=== PATIENT | male | born 1960 | race Caucasian/White ===

== ENCOUNTER → 2016-12-27 | Outpatient (CLI) | payer OTHER ==
[2016-12-27 11:29] LABS: Blood Urea Nitrogen 11 mg/dL (9-20); Non-African American GFR(MDRD) >60 (>60 ml/min/1.73 sqM)
--- NOTE | 2016-12-27 14:15 | MR ---
MR lumbar spine wo con Lumbago Multiplanar, multiecho imaging of the lumbar spine was obtained without contrast on a 3 Donna magnet. REFERENCE: Previous study dated 04/19/2014. FINDINGS: There is a stable 18 mm cystic lesion in the upper pole of the right kidney. Paraspinal so ft tissues are otherwise normal. Vertebral body height and alignment are maintained. The conus of the spinal cord ends above the level of the first cut. At T12-L1, there is mild disc space loss and hypertrophic spondylosis. The intervertebral foramina ap pear well maintained. The facets are unremarkable. At L1-2, there is disc space loss. The intervertebral foramina appear reasonably well-maintained. The re is a mild, diffuse disc displacement. There is mild hypertrophic change in the facets. At L2-3, there is disc space loss. The intervertebral foramina appear well maintained. There is a anne marie mohamud disc displacement. There are mild hypertrophic changes within the facets. At L3-4, there is disc space loss. Intervertebral foramina appear well maintained. There is a diffuse disc displacement, not much change from previous. There are hypertrophic changes in the facets. At L4-5, there is disc space loss. The intervertebral foramina are well maintained. There is a diffus e disc displacement. There is a small annular rent without protrusion. This is unchanged from previou s. There are hypertrophic changes in the facets. There is mild trefoiling of the thecal sac. At L5-S1, there are hypertrophic changes in the facets. IMPRESSION: 1. DIFFUSE DEGENERATIVE DISC DISEASE AND FACET ARTHROPATHY. 2. NO SIGNIFICANT COMPRESSIVE DISCOPATHY OR NEURAL COMPRESSION. 3. SMALL ANNULAR RENT, L4-5 WITHOUT ASSOCIATED PROTRUSION.
--- NOTE | 2016-12-27 14:22 | MR ---
MRI CERVICAL SPINE: MRI BRAIN: CLINICAL HISTORY: Headaches, dizziness, and cervicalgia per order. Headaches with sharp cramping pain in neck causing pain or weakness in both arms and fingers since February 28, 2011 injury. History of pr ior neck surgery 2011. TECHNIQUE: Multiplanar, multisequence imaging of the brain, brainstem, and cervical spine are all per formed withoutIV contrast, 18 cc of gadolinium was given intravenously for dedicated cervical spine i maging. COMPARISON: Cervical spine x-ray November 28, 2011. FINDINGS: BRAIN: Diffusion weighted images demonstrate no evidence of a recent infarct or other diffusion abnormality. There is no extraaxial fluid collection or significant white matter signal abnormality. The ventricu lar system and cisternal spaces are normal in size and appearance. The brain volume is age appropria te. T2 Star weighted images show no suspicious intraparenchymal blood product to suggest diffuse axon al injury. Midline structures demonstrate normal morphology. The craniocervical junction appears within normal limits. Normal vascular flow voids are present. The visualized sinuses are clear and the globes are i ntact. Nasal septum is deviated to right of midline. No suspicious fluid signal seen in mastoid air c ells bilaterally. IMPRESSION: No significant finding is seen to account for patient's symptoms C-SPINE: Sagittal images of the cervical spine show the craniocervical junction to appear within normal limits . The cervical and upper thoracic spinal cord is normal in course, caliber, and signal. Vertebral a lignment is straightened. There is ossific fusion C5-C6 and C6-C7 levels. Artifact from anterior fusi on plate is present. There is some effacement of the anterior thecal sac at surgery level from desire d arthrodesis or ossific fusion. There is mild to moderate disc space narrowing C7-T1 level. Vertebra l body heights and disc space heights above and below surgical levels are felt otherwise within laura l limits. There is small posterior disc herniation C3-C4 level on sagittal images. The bone marrow si gnal intensity is within normal limits. No suspicious postcontrast enhancement is seen. No significan t spurring is noted. Axial images show the C2-C3 level appears within normal limits. Axial images at C3-C4 level show uncovertebral facet degenerative changes bilaterally with broad-base d posterior disc protrusion. There is effacement anterior thecal sac and moderate bilateral neural fo raminal narrowing. Axial images at C4-C5 level show prominent spurring anterior inferior C4 vertebra seen best on sagitt al images. Spinal canal is preserved and bilateral neural foramina are patent. Axial images at C5-C6 level show posterior ossification effacing anterior thecal sac left paracentral region on axial image 31, bilateral neural foramina are patent. Axial images at C6-C7 level show artifact from surgical hardware, spinal canal is preserved and bilat eral neural foramina are patent. Axial images at C7-T1 level are felt within normal limits. IMPRESSION: Postsurgical change C5-C7 level. Some ossific fusion causes effacement of anterior spinal canal most prominent near C5-C6 disc space. There is disc herniation and uncovertebral facet arthrop athy causing moderate bilateral neural foraminal narrowing and effacement of the anterior thecal sac at C3-C4 level.
== END | disposition home or self-care (01) ==
LOC: RADMRIMAIN 10:52
PROVIDERS: ATTEND Nurse Practitioner Acute Care
DX: M51.36 Other intervertebral disc degeneration, lumbar region (principal); M46.96 Unspecified inflammatory spondylopathy, lumbar region; Z98.890 Other specified postprocedural states; M50.21 Other cervical disc displacement, high cervical region; M46.92 Unspecified inflammatory spondylopathy, cervical region; M99.71 Connective tissue and disc stenosis of intervertebral foramina of cervical region; R42 Dizziness and giddiness; R51 Headache
CPT/HCPCS: 82565; 84520; 70551; 72148; 72156; 36415; A9577

== ENCOUNTER → 2020-08-07 | Outpatient (CLI) | payer MEDICARE | END | disposition home or self-care (01) | LOC: LABWHC1 12:28 | PROVIDERS: ATTEND Internal Medicine | DX: Z20.822 Contact with and (suspected) exposure to COVID-19 (principal) | CPT/HCPCS: U0003; C9803; U0005 ==

== ENCOUNTER 2021-01-24 12:09 | Emergency (ER) | payer MEDICARE ==
[2021-01-24 12:14] VITALS: TEMP 97.9
[2021-01-24] MEDS ORDERED: BACITRACIN OINT 1 EACH PACKET TOPICAL ONE (12:24)
[2021-01-24] MEDS ORDERED: LIDOCAINE 1% INJ 10MG/ML (20 ML MDV) SQ ONE (12:24)
[2021-01-24] MEDS ORDERED: DIPH,PERTUS(ACELL)TETVAC-LF 0.5 ML VIAL IM ONE (12:24)
--- NOTE | 2021-01-24 12:27 | ED ---
Wound/Laceration HPI - General Chief Complaint: Wound/Laceration Stated Complaint: finger lac Time Seen by Provider: 01/24/21 12:17 Source: patient Mode of arrival: ambulatory Limitations: no limitations - History of Present Illness Initial Comments: Patient is a 60-year-old male presenting to the emergency department with complaints of a laceration on his right fifth digit. Patient states he dropped his credit card inbetween the seats in his car, he went to reach down to grab it and cut his fifth digit on a sharp part of the seat. He states he takes aspirin. He had a hard time to get it stop bleeding at first. It is controlled now with pressure and a bandage. He states his tetanus vaccine is not up-to-date. He has no further complaints at this time. - Related Data Allergies Allergy/AdvReac Type Severity Reaction Status Date / Time No Known Allergies Allergy Verified 01/24/21 12:14 Review of Systems ROS Statement: Those systems with pertinent positive or pertinent negative responses have been documented in the HPI. ROS Other: All systems not noted in ROS Statement are negative. Past Medical History Past Medical History: Hyperlipidemia, Hypertension Additional Past Medical History / Comment(s): Covid 07/12 History of Any Multi-Drug Resistant Organisms: None Reported Additional Past Surgical History / Comment(s): septum, vasectomy Past Psychological History: No Psychological Hx Reported Smoking Status: Never smoker Past Alcohol Use History: Occasional Past Drug Use History: None Reported General Exam - General Exam Comments Initial Comments: GENERAL: Patient is well-developed and well-nourished. Patient is nontoxic and in no acute distress. HEAD: Atraumatic, normocephalic. EYES: Pupils equal round and reactive to light, extraocular movements intact, sclera anicteric, conjunctiva are normal. Eyelids were unremarkable. LUNGS: Unlabored respirations. Breath sounds clear to auscultation bilaterally and equal. No wheezes rales or rhonchi. HEART: Regular rate and rhythm without murmurs, rubs or gallops. ABDOMEN: Soft, nontender, normoactive bowel sounds. No guarding, no rebound. No masses appreciated. MUSCULOSKELETAL: Normal extremities with adequate strength and normal range of motion, no pitting or edema. No clubbing or cyanosis. NEUROLOGICAL: Patient is alert and oriented x 3. Normal speech, normal gait. PSYCH: Normal mood, normal affect. SKIN: Warm, Dry, normal turgor, no rashes. Patient has a 0.5 cm laceration to the distal end of his right fifth digit, no nail involvement. There is no active bleeding at this time. Limitations: no limitations Course Vital Signs 01/24/21 12:10 Temperature 97.9 F Pulse Rate 62 Respiratory 20 Rate Blood Pressure 176/89 O2 Sat by Pulse 99 Oximetry Procedures - Laceration Laceration #1 Consent Obtained: verbal consent Indication: laceration Site: hand (Right fifth digit, distal end) Size (cm): 0 (0.5cm) Description: linear Depth: simple, single layer Anesthetic Used: lidocaine 1% Anesthesia Technique: local infiltration Amount (mls): 2 Pre-repair: irrigated extensively Type of Sutures: nylon Size of Sutures: 5-0 Number of Sutures: 2 Technique: simple, interrupted Patient Tolerated Procedure: well Medical Decision Making - Medical Decision Making Patient is a 60-year-old male here with a 0.5 cm laceration to the distal end of the right fifth digit. There is no active bleeding. His tetanus vaccine was updated today. He says wound was cleaned, closed with 2, 5-0 sutures. He tole rated procedure well. He will have sutures removed in 7-10 days, he is stable for discharge. Disposition Clinical Impression: Laceration of right little finger Disposition: HOME SELF-CARE Condition: Stable Instructions (If sedation given, give patient instructions): Care For Your Stitches (ED) Additional Instructions: Please return to the Emergency Department if symptoms worsen or any other concerns. Stitches need to be removed in 7-10 days. Keep area clean and dry. Is patient prescribed a controlled substance at d/c from ED?: No Referrals: Dorita Acosta MD [Primary Care Provider] - 1-2 days Time of Disposition: 13:10
[2021-01-24 13:27] VITALS: BP 166/94; PULSE 52; RESP 18
== END 2021-01-24 13:18 | disposition home or self-care (01) ==
LOC: EC 12:09
DX: S61.216A Laceration without foreign body of right little finger without damage to nail, initial encounter (principal); E78.5 Hyperlipidemia, unspecified; I10 Essential (primary) hypertension; W26.8XXA Contact with other sharp object(s), not elsewhere classified, initial encounter; Y92.810 Car as the place of occurrence of the external cause; Z23 Encounter for immunization
CPT/HCPCS: 90715; 99282; 12001; 90471; 96372; J2001